=== PATIENT | female | born 1990 | race Caucasian/White ===

== ENCOUNTER 2017-05-12 04:05 | Emergency (ER) | payer OTHER ==
[~2017-05-12] VITALS: Ht 172.7 cm; Wt 88.5 kg
[~2017-05-12 04:05] MED LIST: ACYCLOVIR 400400 M1 PO; ADIPEX-P37.5 MG PO; BACTRIM DS TAB1 EACH PO; CARISOPRODOL 3350 MG; CARISOPRODOL 3350 MG PO; CYCLOBENZAPRINE5 MG PO; FLAGYL500 MG PO; FLONASE 0.05%50 MCG NASAL; IBUPROFEN 800800 M1; MEDROLDOSEPACK PO; NAPROSYN500 MG PO; NORCO 5-325 TA1 EACH PO; NORLYDA0.35 MG; ORTHO TRI-CYCL1 EAC1 PO; PERCOCET 7.5-31 EACH PO; PRENATAL; TRAMADOL 50 MG50 MG PO; TRINESSA LO TA1 EACH PO; ULTRAM 50MG TAB50 MG PO; VICODIN 5-5001 EACH PO; XANAX 0.5 MG0.5 MG PO; ZOFRAN ODT4 MG PO
[2017-05-12] MEDS ORDERED: ADIPEX-P37.5 MG (04:16)
[2017-05-12 04:55] LABS: ABSOLUTE EOSINOPHILS 0.3 thou/uL (0.0-0.7); ABSOLUTE MONOCYTES 0.6 thou/uL (0.0-1.2); ABSOLUTE NEUTROPHILS 5.9 thou/uL (1.6-8.1); BASOPHILS 0.5 %; EOSINOPHILS 3.8 %; HEMATOCRIT 44.1 % (37.0-47.0); HEMOGLOBIN 14.9 gm/dL (12.0-15.0); LYMPHOCYTES 22.8 %; MCH 29.4 pg (26.0-34.0); MCHC 33.8 g/dL (28.0-37.0); MCV 86.9 fL (80.0-100.0); MONOCYTES 6.6 %; MPV 8.1 fl. (7.2-11.1); NUCLEATED RBCS 0 /100WBC; PLATELET COUNT* 246 thou/uL (150-400); POLYS 66.3 %; RBC 5.07 mil/uL (4.20-5.00); RDW-CV 13.3 % (10.5-14.5); WBC 8.9 thou/uL (4.0-11.0)
[2017-05-12 05:11] LABS: CALCIUM 9.5 mg/dL (8.5-10.1); POTASSIUM 3.9 mmol/L (3.5-5.1)
[2017-05-12 05:16] LABS: ALBUMIN 3.9 g/dL (3.4-5.0); TOTAL BILIRUBIN 0.4 mg/dL (<0.1-1.0); TOTAL PROTEIN 7.2 g/dL (6.4-8.2)
[2017-05-12] MEDS ORDERED: KEFLEX500 M1 PO (05:21)
[2017-05-12] MEDS ORDERED: PERCOCET 5-3251 EACH PO (05:21)
[2017-05-12 05:44] VITALS: BP 111/69
--- NOTE | 2017-05-13 17:36 | EKG ---
[place] [address] ELECTROCARDIOGRAM REPORT Name: HERMINIA CHAN Room: [facility]#: [id number] Admission: 05/12/17 Attend Phys: Discharge: 05/12/17 Date of : 86 Report #: [id number] THIS REPORT FOR: //name// [facility] ED Test Date: 2017-05-12 Test Time: 04:22:34 Pat Name: HERMINIA CHAN Department: Room: Gender: F Senior Solutions Architect: [id number] : 1990 Requested By: Carlos Enrique Roper Order Number: [id number] MD: Dinesh Roman Measurements Intervals [place] Rate: 133 P: 22 [place]: 121 QRS: 62 QRSD: 89 T: 22 QT: 305 QTc: 454 Interpretive Statements Sinus tachycardia No previous ECG available for comparison Electronically Signed On 05-13-2017 17:36:24 [employer] by Dinesh Roman [email or web address] <ELECTRONICALLY SIGNED> By: Dinesh Roman MD, [facility] 05/13/17 1736 0422 0422 Dinesh Roman MD, FACC /EPI
== END 2017-05-12 05:45 | disposition home or self-care (01) ==
LOC: M.ERS 04:05
PROVIDERS: Emergency Medicine Emergency Medical Services
DX: S01.01XA Laceration without foreign body of scalp, initial encounter (principal); R55 Syncope and collapse; S61.212A Laceration without foreign body of right middle finger without damage to nail, initial encounter; F41.9 Anxiety disorder, unspecified; F17.210 Nicotine dependence, cigarettes, uncomplicated; Z88.5 Allergy status to narcotic agent; W18.2XXA Fall in (into) shower or empty bathtub, initial encounter; Y93.89 Activity, other specified; Y92.89 Other specified places as the place of occurrence of the external cause; Y99.8 Other external cause status

== ENCOUNTER 2018-02-27 08:33 | Emergency (ER) | payer OTHER ==
[~2018-02-27] VITALS: Ht 170.2 cm; Wt 107.0 kg
[~2018-02-27 08:33] MED LIST changes: +ADIPEX-P37.5 MG; +KEFLEX500 M1 PO; +PERCOCET 5-3251 EACH PO
[2018-02-27] MEDS ORDERED: BIRTH CONTROL (08:43)
[2018-02-27] MEDS ORDERED: TRAMADOL 50 MG50 MG PO (09:52)
[2018-02-27 10:09] VITALS: BP 128/76
== END 2018-02-27 10:11 | disposition home or self-care (01) ==
LOC: M.ERS 08:33
DX: S02.2XXA Fracture of nasal bones, initial encounter for closed fracture (principal); R04.0 Epistaxis; Y04.2XXA Assault by strike against or bumped into by another person, initial encounter; Y93.89 Activity, other specified; Y92.89 Other specified places as the place of occurrence of the external cause; Y99.8 Other external cause status; F41.9 Anxiety disorder, unspecified; F17.210 Nicotine dependence, cigarettes, uncomplicated; Z88.5 Allergy status to narcotic agent